=== PATIENT | female | born 2000 | race American Indian/Alaskan Native ===

== ENCOUNTER 2018-04-05 14:35 | Inpatient (IN) | payer OTHER ==
[2018-04-05] MEDS ORDERED: DILAUDID ONE ×2 (14:41→19:01)
[2018-04-05] MEDS ORDERED: ZOFRAN ONE ×2 (14:41→19:22)
[2018-04-05] MEDS ORDERED: DILAUDID IV ONE ×3 (14:51→16:26)
[2018-04-05] MEDS ORDERED: SODIUM CHLORIDE FLUSH SYRINGE 10 ML IV PRN (14:51)
[2018-04-05] MEDS ORDERED: ZOFRAN IV ONE (14:51)
[2018-04-05] MEDS ORDERED: TENIVAC IM ONE (14:53)
[2018-04-05] MEDS ORDERED: NACL 0.9% 1000 ML 1,000 ML IV ONE (14:55)
[2018-04-05] MEDS ORDERED: BOOSTRIX IM ONE (14:58)
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
[2018-04-05 15:08] LABS: Basophils % (Auto) 0.8 % (0.0-1.8); Eosinophils # (Auto) 0.1 K/mm3 (0.0-0.4); Hematocrit 39.1 % (30.3-42.9); Hemoglobin 13.1 gm/dl (10.1-14.3); Lymphocytes # (Auto) 2.6 K/mm3 (1.2-5.4); Lymphocytes % (Auto) 41.2 % (13.4-35.0); Mean Corpuscular HGB Conc 34 % (30-34); Mean Corpuscular Hemoglobin 31 pg (28-32); Mean Corpuscular Volume 92 fl (79-97); Monocytes # (Auto) 0.6 K/mm3 (0.0-0.8); Monocytes % (Auto) 8.9 % (0.0-7.3); Platelet Count 295 K/mm3 (140-440); Red Blood Count 4.24 M/mm3 (3.65-5.03); Red Cell Distribution Width 13.3 % (13.2-15.2)
[2018-04-05 15:16] LABS: BUN/Creatinine Ratio 10; Blood Urea Nitrogen 7 mg/dL (7-17); Calcium 9.6 mg/dL (8.4-10.2); Hemolysis Index 12
[2018-04-05] MEDS ORDERED: CLEOCIN 600 MG/50 mL 600 MG/50 ML BAG IV ONE (15:45)
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
[2018-04-05] MEDS ORDERED: NACL 0.9% 1000 ML 1,000 ML ONE (18:55)
[2018-04-05] MEDS ORDERED: DIPRIVAN 10 MG/ML IV ONE (19:01)
[2018-04-05] MEDS ORDERED: VERSED ONE (19:14)
[2018-04-05] MEDS ORDERED: ZEMURON IV ONE (19:22)
[2018-04-05] MEDS ORDERED: DECADRON ONE (19:22)
[2018-04-05] MEDS ORDERED: NACL 0.9% IR ONE (19:28)
[2018-04-05] MEDS ORDERED: SUBLIMAZE ONE ×2 (19:32→20:10)
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
--- NOTE | 2018-04-05 20:40 | Anesthesia Day of Surgery ---
Anesthesia Day of Surgery - Day of Surgery Patient Examined: Yes Patient H&P Reviewed: Yes Patient is NPO: No (rule emergent)
[2018-04-05] MEDS ORDERED: TORADOL IV PRN (20:41)
[2018-04-05] MEDS ORDERED: ZOFRAN IV PRN ×2 (20:41→20:46)
[2018-04-05] MEDS ORDERED: DILAUDID IV PRN (20:41)
[2018-04-05] MEDS ORDERED: NORCO 5/325 PO PRN (20:46)
[2018-04-05] MEDS ORDERED: TORADOL ONE (20:50)
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
[2018-04-05] MEDS ORDERED: SODIUM CHLORIDE FLUSH SYRINGE 10 ML IV SCH (21:00)
[2018-04-05] MEDS ORDERED: D5/0.45NS 1,000 ML IV SCH (21:00)
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
[2018-04-05] MEDS: COLACE PO SCH (22:57)
[2018-04-05] MEDS: MORPHINE IV PRN (23:04)
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
[2018-04-06] MEDS: COLACE PO SCH (10:02)
[2018-04-06] MEDS: MORPHINE IV PRN (11:32)
[2018-04-06 16:40] VITALS: BP 125/59
== END 2018-04-06 18:20 | disposition home or self-care (01) | DRG 465 ==
LOC: ED 14:35 → 3A 17:29 → 3B-SURG 19:58
PROC: 0QSP34Z Reposition Left Metatarsal with Internal Fixation Device, Percutaneous Approach (ICD-10-PCS; principal; 2018-04-05)
PROC: 0JBR0ZZ Excision of Left Foot Subcutaneous Tissue and Fascia, Open Approach (ICD-10-PCS; 2018-04-05)
PROC: 0JBQ0ZZ Excision of Right Foot Subcutaneous Tissue and Fascia, Open Approach (ICD-10-PCS; 2018-04-05)
PROC: 0QSP34Z Reposition Left Metatarsal with Internal Fixation Device, Percutaneous Approach (ICD-10-PCS; 2018-04-05)
PROC: 2W3TX1Z Immobilization of Left Foot using Splint (ICD-10-PCS; 2018-04-05)
DX: S92.322B Displaced fracture of second metatarsal bone, left foot, initial encounter for open fracture (principal); S92.332B Displaced fracture of third metatarsal bone, left foot, initial encounter for open fracture; S92.342B Displaced fracture of fourth metatarsal bone, left foot, initial encounter for open fracture; X95.9XXA Assault by unspecified firearm discharge, initial encounter; F17.210 Nicotine dependence, cigarettes, uncomplicated; Y93.89 Activity, other specified; Y92.89 Other specified places as the place of occurrence of the external cause; Y99.8 Other external cause status; Z88.0 Allergy status to penicillin; Z88.1 Allergy status to other antibiotic agents
CPT/HCPCS: 36415; 80048; 84703; 85025; 86850; 86900; 86901; 90471; 90715; 96365; 96375; A4217; J1100; J1170; J1885; J2250; J2270; J2405; J2704; J3010; J7030